=== PATIENT | male | born 1935 | race Caucasian/White ===

== ENCOUNTER 2016-07-19 05:26 | Day surgery (SDC) | payer OTHER ==
[2016-07-19] MEDS ORDERED: LR 1,000 ML ONE (06:16)
[2016-07-19] MEDS ORDERED: MYLICON DROPS (DOSE) MISC ONE (08:45)
[2016-07-19] MEDS ORDERED: DIPRIVAN 1% ONE (09:26)
[2016-07-19 09:44] VITALS: BP 139/65
[2016-07-19] MEDS ORDERED: XYLOCAINE-MPF 2% ONE (09:56)
--- NOTE | 2016-07-24 04:19 | OPERATIVE NOTE ---
PROCEDURE DATE: 07/19/2016 REFERRING PHYSICIAN: Osmani Hunt MD INDICATION FOR CONSULTATION: 1. Persistent epigastric pain. 2. Nausea with vomiting. 3. History of peptic ulcer disease. 4. History of persistent H. pylori infection. PROCEDURE PERFORMED: Esophagogastroduodenoscopy with biopsy. CONSENT: Informed consent was obtained from the patient prior to the procedure. The risks, benefits, and alternatives were discussed. MEDICATIONS: The patient received monitored anesthesia care. PROCEDURE PERFORMED: Esophagogastroduodenoscopy with biopsy. CONSENT: Informed consent was obtained from the patient prior to the procedure. The risks, benefits, and alternatives were discussed with the patient and her family. COMPLICATIONS: There were no complications. ESTIMATED BLOOD LOSS: Less than 1 mL. SPECIMENS REMOVED: 1. Duodenal biopsies. 2. Gastric biopsy. 3. We obtained an additional biopsies for H pylori culture. FINDINGS: After sedation was achieved, the upper endoscope was inserted to the 2nd portion of the duodenum. The hypopharynx appeared endoscopically normal. The tubular esophagus appeared grossly normal. There were no varices, and no López's esophagus. The GE junction was measured at 45 cm from the incisors. There was a small hiatal hernia that spanned from 45-50 cm. In the gastric lumen, there was erosive gastritis with thickened gastric folds. The patient is only currently able to undergo an EGD, as she reports having a bad experience with her most recent colonoscopy. In the gastric lumen, there was mild erosive gastritis with thickened gastric folds. There has been interval healing of the gastric ulcer compared to the previous endoscopy. The erosive gastritis persists after treatment for H pylori. On retroflexed view, there were no other findings except for the aforementioned gastritis. On forward view, the pylorus appeared normal. In the bulb, there was mild duodenitis. There was interval healing of the duodenal ulcer seen on previous exam. After the examination was complete, the scope was retracted into the gastric lumen. Biopsies were taken from the duodenal bulb, as well as the gastric mucosa. Additional biopsies were sent to [facility] for culturing of the H pylori bacterium. The lumen was then decompressed. The scope was removed without incident. IMPRESSION: 1. Hiatal hernia. 2. Erosive gastritis. 3. Gastritis. 4. Duodenitis. RECOMMENDATION: 1. Await biopsy results. 2. Await H. pylori culture. 3. Continue Carafate. 4. Increase Nexium to 40 mg 1 p.o. b.i.d. for 6 weeks and then resume daily dosing. 5. Hold anticoagulation until 07/24/2016. Please resume anticoagulation on 07/24/2016 and monitor for bleeding. 6. We will have the patient return to clinic in 4-6 weeks to assess interval progress.
== END 2016-07-19 10:11 | disposition home or self-care (01) ==
LOC: ENDO 05:26
PROVIDERS: ATTEND Internal Medicine Gastroenterology
DX: R10.13 Epigastric pain (principal); K29.50 Unspecified chronic gastritis without bleeding; R11.2 Nausea with vomiting, unspecified; E11.9 Type 2 diabetes mellitus without complications
CPT/HCPCS: 88305; 88312; 99999; J7120